=== PATIENT | male | born 1995 | race Caucasian/White ===

== ENCOUNTER 2019-02-03 09:28 | Emergency (ER) | payer MEDICAID ==
[~2019-02-03] VITALS: Ht 180.3 cm; Wt 107.7 kg
[2019-02-03 10:47] VITALS: BP 122/60
== END 2019-02-03 10:48 ==
LOC: ER 09:29
DX: R51 Headache (principal); Z86.69 Personal history of other diseases of the nervous system and sense organs; V87.7XXA Person injured in collision between other specified motor vehicles (traffic), initial encounter; Y93.89 Activity, other specified; Y92.488 Other paved roadways as the place of occurrence of the external cause; Y99.8 Other external cause status
CPT/HCPCS: 99283